=== PATIENT | female | born 1985 | race Caucasian/White ===

== ENCOUNTER → 2017-02-28 | Outpatient (CLI) | payer MEDICAID ==
[~2017-02-28] MED LIST: COLACE-DPS100 MG PO; MOTRIN-DPS800 MG PO; NIPPLECREAM TP; OXY IR DPS5 MG PO; PRENATAL VIT1 TAB PO
== END | disposition home or self-care (01) ==
LOC: RAD.S 12:51
DX: O36.63X0 Maternal care for excessive fetal growth, third trimester, not applicable or unspecified (principal); Z3A.36 36 weeks gestation of pregnancy

== ENCOUNTER 2017-03-23 13:30 | Inpatient (IN) | payer MEDICAID ==
--- NOTE | ~2017-03-23 | FD ---
ADMIT: 03/23/2017 RM/LOC: 228 [facility] MR#: [id number] 2620 [facility] [address] [place] [id number] FR[address]IA [address] [place] [address] Final Diagnosis SEX: F AGE: 31 : 1985 ADMISSION DATE: 03/23/2017 DISCHARGE DATE: 03/25/2017 FINAL DIAGNOSIS: 1. Intrauterine at 37-5/7 weeks' gestation. 2. Anti-K antibody positive. PROCEDURE: 1. Spontaneous vaginal delivery. 2. Liveborn female . Karissa Felipe MD Resident / Jose A Shook MD / bryan JOB #: [id number] CC: Jose A Shook MD, Attending Physician Demetrius Beyer MD, Family Physician
--- NOTE | 2017-03-24 10:09 | HP ---
ADMIT: 03/23/2017 RM/LOC: 228 [facility] MR#: [id number] 2620 [facility] [address], [place] [address] FRANCIA [address]WTON [address] [place] [address] History and Physical SEX: F AGE: 31 : 1985 DATE OF SERVICE: 03/23/2017 CHIEF COMPLAINT: Uterine contractions. HISTORY OF PRESENT ILLNESS: The patient is a 31-year-old, 4, para 3, with intrauterine at 37 and 5/7th weeks gestation by 16-week ultrasound, who presented to Labor and Delivery with complaint of uterine contractions. She was monitored in Labor and Delivery and found to progress from 3 to 6 cm dilated over a 3 hour period, and was therefore admitted for active labor. This has been complicated by anti-K antibody for which the patient was seen by Maternal Medicine. It was discovered that the patient had actually been anti-K antibody positive on her previous pregnancies and it was thought to be secondary to the blood transfusion she received after her first delivery and subsequent hemorrhage. Father of the baby was previously tested with K antigen negative, and it is the same father, so there is no risk to the fetus being K positive. was also complicated by history of macrosomia with this baby also consistently measuring size greater than dates. PAST MEDICAL HISTORY: None. PAST SURGICAL HISTORY: None. OBSTETRIC HISTORY: Significant for delivery resulting in 4th degree tear and hemorrhage requiring blood transfusion with her first (the baby was 9 pounds 11 ounces). She went on to deliver an 8 pounds 5 ounce and a 7 pounds 5 ounce baby since then without complications. MEDICATIONS: vitamin daily. ALLERGIES: NO KNOWN MEDICAL ALLERGIES. FAMILY HISTORY: Without any known complications with the , delivery, or anesthesia. No known defects. SOCIAL HISTORY: The patient is and is the father of all four of her children. She denies any alcohol, tobacco, or illicit drug use. REVIEW OF SYSTEMS: Positive for regular uterine contractions and good movement. Negative for vaginal bleeding or loss of fluid. PHYSICAL EXAMINATION: VITAL SIGNS: Afebrile, 113/55, 78, 20, 95% on room air. GENERAL: A well-developed, well-nourished, female. Alert, oriented, in no acute distress. HEENT: Head is normocephalic and atraumatic. Pupils are equal, round, and reactive to light. Extraocular muscles are intact. NECK: Supple. Trachea is midline. Thyroid is not palpable. ADMIT: 03/23/2017 RM/LOC: 228 [facility] MR#: [id number] [address] [id number] FRANCIA NEWTON [address] [place] [address] History and Physical SEX: F AGE: 31 : 1985 HEART: Regular rate and rhythm. LUNGS: Clear to auscultation. ABDOMEN: Soft, nontender to palpation. Gravid. Estimated weight 8 pounds. EXTREMITIES: Without clubbing, cyanosis, or edema. NEUROLOGIC: Grossly intact. : Sterile vaginal exam was completed. The cervix was found to be 6 cm dilated, 80% effaced, and -1 station. heart tracing baseline 130 with moderate variability, one variable decel present, 15 x 15 accelerations also present. Tocometry irregular, but contractions palpated every 3 to 4 minutes. OBSTETRICAL LABS: Blood type O positive, antibody screen positive for anti-K. Syphilis negative. Hepatitis B surface antigen negative. Rubella immune. Gonorrhea and Chlamydia negative. One-hour glucose 125. HIV negative. Group B Streptococcus negative. ASSESSMENT AND PLAN: A 31-year-old, 4, para 3 with: 1. Intrauterine at 37 and 5/7th weeks' gestation by 16-week ultrasound, who presented to Labor and Delivery with complaint of uterine contractions found to be in active labor. 2. Group B Streptococcus negative. 3. Anti-K antibody positive. The patient was seen by M and the patient's partner was previously tested and negative for anti-K antigen, so this baby is not considered at risk. 4. History of macrosomic baby with 4th degree tear requiring blood transfusion. The patient has a proven pelvis to 9 pounds 11 ounces and this baby is not expected to be larger at this time. 5. Fetus is vertex and heart tracing is category 1. 6. Anticipate spontaneous vaginal delivery. Karissa Felipe MD Resident / Jose A Shook MD / argelia JOB #: [id number] CC: Jose A Shook, Attending Physician Demetrius Beyer, Family Physician
[2017-03-26] MEDS ORDERED: NIPPLECREAM TP (18:13)
[2017-03-26] MEDS ORDERED: OXY IR DPS5 MG PO (18:13)
[2017-03-26] MEDS ORDERED: PRENATAL VIT1 TAB PO (18:13)
[2017-03-26] MEDS ORDERED: MOTRIN-DPS800 MG PO (18:13)
[2017-03-26] MEDS ORDERED: COLACE-DPS100 MG PO (18:13)
--- NOTE | 2017-03-30 08:47 | OR ---
ADMIT: 03/23/2017 RM/LOC: 228 [facility] MR#: [id number] 26[address] [facility] [address] [place], [place] [address] FRANCIA NEWTON [address] [place] [address] Operative/Delivery Room Report SEX: F AGE: 31 : 1985 SURGERY DATE: 03/23/2017 SURGEON: Jose A Shook MD NAME OF PROCEDURE: Spontaneous vaginal delivery. PREOPERATIVE DIAGNOSES: 1. Intrauterine at 37 and 5/7th weeks gestation. 2. Active labor. POSTOPERATIVE DIAGNOSES: 1. Intrauterine at 37 and 5/7th weeks gestation. 2. Active labor. FINDINGS: Liveborn female infant with Apgars of 7 at one minute, and 8 at five minutes. Weight 7 pounds 13 ounces. ESTIMATED BLOOD LOSS: 350 mL. ANESTHESIA: None. COMPLICATIONS: None. INDICATION FOR PROCEDURE: The patient is a 31-year-old, 4, para 3-0-0- 3, who presented to Labor and Delivery at 37 and 5/7th weeks' gestation by a 16-week ultrasound, in active labor. The patient's had been complicated by anti-K antibody, though father was tested with previous and was anti-K antigen negative. Maternal- Medicine felt there is no risk for the baby. The was also complicated by history of macrosomic requiring forceps delivery resulting in 4th degree laceration and hemorrhage requiring blood transfusion. The patient progressed through labor to completely dilated and pushed, bringing the infant's vertex to the perineum. DESCRIPTION OF PROCEDURE: The patient was noted to be complete and pushing with 's vertex at the perineum. With a contraction, the patient pushed the 's vertex, delivered in the FELIPE position over midline. Tight nuchal cord was noted, though the patient was able to deliver the without reduction of the cord. The anterior shoulder delivered, the posterior shoulder followed. The remainder of the was delivered without ADMIT: 03/23/2017 RM/LOC: 228 [facility] MR#: [id number] [address] [place] [id number] [place], [place] [address] FRANCIA NEWTON [address] [place] [address] Operative/Delivery Room Report SEX: F AGE: 31 : 1985 difficulty. The infant was placed on mother's abdomen and delayed cord clamping was allowed for over 1 minute. The cord was then clamped and cut by the father, and noted to have 2 arteries and 1 vein. Placenta delivered and was noted to be intact. The 20 units of IV Pitocin was given to firm the uterus. The patient did have brisk bleeding following delivery of the placenta, which resolved with improvement of the uterine tone after bimanual massage. The patient was also given 1 dose of IM methergine for this reason. There was noted to be a 2nd degree perineal laceration at midline which was repaired with 2-0 Vicryl in the ususal fashion. All sponge and needle counts were correct. The patient and recovered in the room in stable condition. Dr. Jose A Shook was present and participated in management of both labor and delivery of this patient. Karissa Felipe MD Resident / Jose A Shook MD / argelia JOB #: [id number] CC: Jose A Shook, Attending Physician Demetrius Beyer, Family Physician
== END 2017-03-25 13:20 | disposition home or self-care (01) | DRG 775 ==
LOC: BC 13:30 → 2LDRP 13:30 → BC 04-08 08:00
PROVIDERS: ADMIT Family Medicine
PROC: 10E0XZZ Delivery of Products of Conception, External Approach (ICD-10-PCS; principal; 2017-03-23)
PROC: 0KQM0ZZ Repair Perineum Muscle, Open Approach (ICD-10-PCS; principal; 2017-03-23)
DX: O36.1930 Maternal care for other isoimmunization, third trimester, not applicable or unspecified (principal); O69.1XX0 Labor and delivery complicated by cord around neck, with compression, not applicable or unspecified; O70.1 Second degree perineal laceration during delivery; Z3A.37 37 weeks gestation of pregnancy; Z37.0 Single live birth